=== PATIENT | female | born 1985 | race Caucasian/White ===

== ENCOUNTER → 2019-10-30 10:01 | Outpatient (BNVA) | payer SELFPAY | PROVIDERS: Visit Provider Emergency Medicine | DX: N39.0 Urinary tract infection, site not specified (principal); R10.30 Lower abdominal pain, unspecified | CPT/HCPCS: 81000 ==

== ENCOUNTER 2019-12-05 10:53 | Emergency (ER) | payer MEDICAID, SELFPAY ==
[2019-12-05] MEDS: sodium chloride 0.9% 1,000 ML 999 ML IV (11:20)
[2019-12-05 11:29] VITALS: BP 121/82; PULSE 79; RESP 17; TEMP 37.1; O2SAT 98; BMI 26.1
[2019-12-05 12:31] LABS: Basophils # 0.1 10^3/uL (0.0-0.1); Basophils % 0.8 %; Eosinophils % 0.1 %; Hematocrit 43.4 % (37.0-47.0); Hemoglobin 14.1 g/dL (11.5-15.3); Lymphocytes # 2.1 10^3/uL (0.8-4.8); Lymphocytes % 20.1 %; Mean Corpuscular HGB Conc 32.5 g/dL (30.0-36.0); Mean Corpuscular Hemoglobin 29.6 pg (28.0-34.0); Mean Platelet Volume 9.5 fL (7.4-10.4); Monocytes # 0.7 10^3/uL (0.2-0.9); Monocytes % 7.1 %; Neutrophils # 7.43 10^3/uL (1.8-7.7); Neutrophils % 71.7 %; Nucleated Red Blood Cells % 0 %; Platelet Count 291 10^3/cmm (130-400); Red Blood Count 4.77 10^6/uL (4.1-5.3); Red Cell Distribution Width 11.9 % (12.1-15.1); White Blood Count 10.4 10^3/uL (4.0-10.0)
[2019-12-05 12:47] LABS: Alanine Aminotransferase 10 U/L (0-33); Albumin Level 4.7 g/dL (3.5-5.2); Alkaline Phosphatase 57 IU/L (35-105); Aspartate Amino Transferase 11 U/L (0-32); Blood Urea Nitrogen 12 mg/dL (6-20); Calcium 9.4 mg/dL (8.5-10.5); Carbon Dioxide 26 mmol/L (22-29); Chloride 99 mmol/L (98-107); Globulin 3.6 g/dL (1.3-4.6); Glomerular Filtration Rate 70.8 mL/min (90-130); Glucose 102 mg/dL (65-115); Lipase 59 U/L (13-60); Osmolality Calculated 272 mOsm/kg (285-295); Sodium 133 mmol/L (136-145); Total Bilirubin 0.8 mg/dL (0.15-1.2); Total Protein 8.3 g/dL (6.6-8.7)
--- NOTE | 2019-12-05 13:08 | CTR_ITS ---
PROCEDURE INFORMATION: Exam: CT Abdomen And Pelvis With Contrast Exam date and time: 12/05/2019 1:08 PM Age: 34 years old Clinical indication: Abdominal pain; Additional info: Abdominal pain, fever TECHNIQUE: Imaging protocol: Computed tomography of the abdomen and pelvis with intravenous contrast. Axial, coronal and sagittal reformatted images were created and reviewed. Radiation optimization: All CT scans at this facility use at least one of these dose optimization techniques: automated exposure control; mA and/or kV adjustment per patient size (includes targeted exams where dose is matched to clinical indication); or iterative reconstruction. Contrast material: OMNI 300; Contrast volume: 95 ml; Contrast route: INTRAVENOUS (IV); COMPARISON: No relevant prior studies available. RADIATION DOSE METRICS: Total DLP (mGy-cm): 374.02 FINDINGS: Liver: Unremarkable. Gallbladder and bile ducts: No radiodense gallstones. No biliary ductal dilatation. Pancreas: Unremarkable. Spleen: Unremarkable. Adrenals: Unremarkable. Kidneys and ureters: 5.1 x 4.3 cm simple left renal cyst (no follow-up is indicated based on the imaging appearance). No radiodense calculi. No hydronephrosis. Stomach and bowel: No bowel wall thickening. No obstruction. No pneumatosis. Appendix: Status post appendectomy. Intraperitoneal space: No free fluid. No organized fluid collection. No free air. Vasculature: Unremarkable. No aneurysm. Lymph nodes: No pathologically enlarged lymph nodes. Bladder: Mild circumferential urinary bladder wall thickening, likely secondary to underdistention. Reproductive: Probable involuting right ovarian corpus luteal cyst versus dominant follicle. Bones/joints: No acute osseous abnormality. Soft tissues: Small, fat containing umbilical hernia. CT/CT abdomen pelvis w con* [id number]: 1. No CT evidence of acute intra-abdominal or pelvic pathology. 2. Additional findings, as above. COMMENTS: Consistent with the [employer]'s Incidental Findings Committee white paper (J Am Emilie Radiol 2018): Any incidental renal lesion less than 1.0 cm or classified as too small to characterize, or any incidental cystic renal lesion characterized as simple-appearing, is likely benign. No follow-up imaging is recommended for these lesions per consensus recommendations based on imaging criteria. Radiation Dose CTDIVOL = (mGy): DLP = 374.02 (mGy-cm)
[2019-12-05] MEDS: iohexol 300 mg/mL 100 mL Btl IV (15:22)
[2019-12-05 16:15] VITALS: BP 128/75; PULSE 78; RESP 16; O2SAT 97
--- NOTE | 2019-12-05 18:35 | W.ED.NAVMDI ---
HPI - Nausea/Vomiting/Diarrhea General: Chief complaint: Nausea/Vomiting/Diarrhea Stated complaint: n/v x 5 weeks,weight loss Time Seen by Provider: 12/05/19 12:22 History of Present Illness: HPI Narrative: This patient is a 34-year-old female who presents today with nausea and vomiting for 5 weeks. She has had about a 10 pound weight loss over the past 5 weeks. She said typically she wakes up in the morning and is too nauseous to eat. She often throws up before she tries to eat anything. She has been seen multiple times at urgent care, primary care, ED and has been diagnosed with various complaints from urinary tract infection to ear infection. She has been on antibiotics including amoxicillin, Cipro, Macrobid, Keflex. The only when she took a full course of was the Keflex. She said that did improve her urinary symptoms. She continues to have vomiting and is concerned about that. She also takes Ativan for anxiety and said that helps with the nausea but nothing else does. She has been taking Pepcid and Prilosec as well as Tums. She was also given Zofran. MD elicited complaint: nausea, vomiting and abdominal pain (Burning epigastric) Onset (ago): week(s) (5) Description of vomiting: watery Associated nausea: Yes Location of pain: Epigastric Associated symtoms: Reports nausea; Denies change in vision, chest pain, fatigue or headache(s) Review of Systems General: Reports: 10 or more systems reviewed and unremarkable except in HPI and below Const: Reports: change in weight; Denies: fever(s), chills or fatigue Eyes: Denies: change in vision ENMT: Denies: odynophagia Card: Denies: chest pain or swelling of feet/ankles Resp: Denies: dyspnea, productive cough or non-productive cough GI: Reports: nausea : Denies: flank pain or difficulty voiding Musc: Denies: neck pain or back pain Skin/Breast: Denies: rash Neuro: Denies: headache(s), numbness in extremities or weakness in extremities Donald/Lymph: Denies: easy bruising or easy bleeding PFSH ED PFSH: Social History Smoking and tobacco status: never smoked Alcohol intake: never History of recent travel: No Current gender identity: Female Physical Exam Const: COMMON NORMALS: no acute distress, patient oriented x3, no limitations and alert GENERAL APPEARANCE: cooperative and comfortable HENMT: HEAD & SCALP: normal to inspection FACE & SINUS: normal facial exam Eye: GENERAL EYE: appearance normal, both eyes and all related structures Neck/C-Spine: COMMON NORMALS: supple, no meningeal signs and no JVD Chest: COMMONS NORMALS: normal inspection of the chest Resp: COMMON NORMALS: normal respiratory effort, No use of accessory muscles and clear to auscultation bilaterally AUSCULTATION: clear to auscultation bilaterally Cardio: COMMON NORMALS: no JVD, regular rate, regular rhythm and No murmurs present (Cardio) RATE: regular rate RHYTHM: regular rhythm GI: COMMON NORMALS: Normal to inspection, nondistended, normoactive bowel sounds present, Soft to palpation and non-tender INSPECTION: Yes normal to inspection AUSCULTATION: Yes normoactive bowel sounds PALPATION: Yes Soft to palpation Back/Pelvis: COMMON NORMALS: thoracic and lumbar spine normal to inspection Extremity: COMMON NORMALS: normal to inspection Neuro: COMMON NORMALS: patient oriented x3, moves all extremities, no focal motor deficits and no sensory deficits noted SENSORIUM/ORIENTATION: Yes alert MENINGEAL SIGNS: Yes no meningeal signs Psych: COMMON NORMALS: mental status grossly normal, cooperative and normal affect Skin: COMMON NORMALS: no rashes or lesions noted and turgor normal GENERAL SKIN EXAM: no rashes or lesions noted and turgor normal Course ED course: Work-up unremarkable including urine. CT was done due to her persistent symptoms and weight loss. This was also unremarkable. We discussed that she probably needs further testing. This might include endoscopy or evaluation of her gallbladder with ultrasound or HIDA scan. I gave her referral to Dr. Goetz and she tells me she also has a referral to Dr. Bailey in [place]. I changed her medications and have her only on Pepcid rather than both that and omeprazole. I added Carafate and took her off the Tums. I added Reglan. Vital Signs: Vital signs: Vital Signs Temperature 98.7 F 12/05/19 11:29 Pulse Rate 78 12/05/19 16:15 Respiratory Rate 16 12/05/19 16:15 Blood Pressure 128/75 08/23/20 16:15 Pulse Oximetry 97 12/05/19 16:15 MDM - Nausea/Vomiting/Diarrhea MDM Narrative: Medical decision making narrative: Biliary colic, GERD, ulcers, anxiety, hiatal hernia, renal stone, pyelo-nephritis Lab Data: Labs: Lab Results 12/05/19 12/05/19 Range/Units 12:22 12:22 WBC 10.4 H (4.0-10.0) 10^3/ uL RBC 4.77 (4.1-5.3) 10^6/u L Hgb 14.1 (11.5-15.3) g/dL Hct 43.4 (37.0-47.0) % MCV 91.0 (81-99) fL MCH 29.6 (28.0-34.0) pg MCHC 32.5 (30.0-36.0) g/dL RDW 11.9 L (12.1-15.1) % Plt Count 291 (130-400) 10^3/c mm MPV 9.5 (7.4-10.4) fL Neut % (Auto) 71.7 % Lymph % (Auto) 20.1 % [place] % (Auto) 7.1 % Eos % (Auto) 0.1 % Baso % (Auto) 0.8 % Neut # (Auto) 7.43 (1.8-7.7) 10^3/u L Lymph # (Auto) 2.1 (0.8-4.8) 10^3/u L [place] # (Auto) 0.7 (0.2-0.9) 10^3/u L Eos # (Auto) 0.0 (0.0-0.8) 10^3/u L Baso # (Auto) 0.1 (0.0-0.1) 10^3/u L Nucleated RBC % (a uto) 0 % Nucleated RBCs # 0.0 /100WBC Sodium 133 L (136-145) mmol/L Potassium 4.0 (3.5-5.1) mmol/L Chloride 99 (98-107) mmol/L Carbon Dioxide 26 (22-29) mmol/L Anion Gap 12.0 (5-19) BUN 12 (6-20) mg/dL Creatinine 0.9 (0.5-0.9) mg/dL GFR Calculation 70.8 L (90-130) mL/min Glucose 102 (65-115) mg/dL Calculated Osmolal ity 272 L (285-295) mOsm/k g Calcium 9.4 (8.5-10.5) mg/dL Total Bilirubin 0.8 (0.15-1.2) mg/dL AST 11 (0-32) U/L ALT 10 (0-33) U/L Alkaline Phosphata se 57 (35-105) IU/L Total Protein 8.3 (6.6-8.7) g/dL Albumin 4.7 (3.5-5.2) g/dL Globulin 3.6 (1.3-4.6) g/dL Lipase 59 (13-60) U/L Discharge Plan Discharge Patient Disposition: Home Clinical Impression: Vomiting Qualifiers: Vomiting type: unspecified Vomiting Intractability: unspecified Nausea presence: unspecified Qualified Code(s): R11.10 - Vomiting, unspecified Condition: Stable Prescriptions: New Reglan 10 mg tablet 10 mg PO BID PRN (Reason: nausea and vomiting) 7 Days Qty: 14 RF: 0 Carafate 1 gram tablet 1 gm PO TID 28 Days Qty: 84 RF: 0 Discontinued calcium carbonate [Tums] 300 mg (750 mg) Tablet,Chewable 300 mg PO QID RF: 0 omeprazole 20 mg Tablet,Delayed Release (Dr/Ec) 20 mg PO DAILY RF: 0 ibuprofen 200 mg Tablet 200 - 400 mg PO Q4H PRN (Reason: Pain) RF: 0 No Action ondansetron HCl 4 mg tablet 4 mg PO Q4H PRN (Reason: Pain) RF: 0 Pepcid 20 mg Tablet 20 mg PO DAILY RF: 0 lorazepam 0.5 mg tablet 0.5 mg PO BID RF: 0 escitalopram oxalate 10 mg tablet 10 mg PO DAILY RF: 0 Discharge Orders: Discharge Order (Routine); Ordered 12/05/19 Ordered By: Rosamaria Spangler Referrals: Jaleel Goetz MD [Physician] - 7-10 days (GI evaluation) Discharge Diet: Low Fat Discharge Activity: Resume usual activity Patient Instructions: Gastroesophageal Reflux Disease (ED) Activity Restrictions/Additional Instructions: Return to the emergency department if new or worse symptoms including fever. Follow-up with Dr. Goetz for an evaluation of your GI symptoms. Stop the Prilosec, continue the Pepcid. Stop the Tums and start Carafate. You may use the Zofran and the Reglan together if needed for nausea. Try taking the Reglan first thing in the morning before you eat. Discharge Date/Time: 12/05/19 16:16 Coding Level of Care Code ED Health Care Marketing Manager for Julio C Brannon
== END 2019-12-05 16:16 | disposition home or self-care (01) ==
PROVIDERS: Emergency Medicine; Emergency Provider Emergency Medicine
DX: R11.10 Vomiting, unspecified (principal)
CPT/HCPCS: 12345; 74177; 80053; 83690; 85025; 96360; 99283; J7030; Q9967

== ENCOUNTER 2019-12-10 09:04 | Day surgery (SDC) | payer MEDICAID, SELFPAY ==
[2019-12-08 15:28] VITALS: BMI 42.9
[2019-12-10 09:51] VITALS: BP 137/80; PULSE 74; RESP 18; TEMP 36.5; O2SAT 98
[2019-12-10] MEDS: sodium chloride 0.9% 1,000 ML 30 ML IV (09:59)
--- NOTE | 2019-12-10 10:22 | ANES.PREANE2 ---
Pre-Anesthetic Assessment Pre-Anesthetic Assessment: Height/Weight: Height 1.63 m Weight 68.039 kg Temp Pulse Resp BP Pulse Ox 97.7 F 74 18 137/80 98 12/10/19 09:51 12/10/19 09:51 12/10/19 09:51 12/10/19 09:51 12/10/19 09:51 Preop Diagnosis: egd Proposed Procedure: Operation Date: 12/10/19 10:45 Proposed Procedures p EGD 43143 R11.2(Not Applicable) - Jaleel Goetz MD Was Beta Kermit taken within 24 hours: N/A Last intake: Intake Last Liquid Date 12/09/19 Last Liquid Time 23:50 Last Solid Date 12/09/19 Last Solid Time 20:30 Social: Social History: No alcohol and No tobacco Exam: Pre-Anes Outpt Exam: alert, oriented x 3, clear to auscultation bilaterally and regular rate & rhythm Airway: Submandibular: WNL Cervical ROM: WNL MP: 1 History/ROS: No significant history except as noted Pulmonary: Pulmonary: None reported CV/HEM: CV/HEM: None reported : : None reported GI: GI: GERD Metabolic: Metabolic: None reported Musc/skel: Musc/skel: None reported Neuropsych: Neuropsych: None reported Anesthetic Plan: ASA status: 2 Meds/Allergies Current Medications: Current Medications Generic Name Dose Route Start Last Admin Trade Name Freq PRN Reason Stop Dose Admin Sodium Chloride 1,000 mls @ 30 ml s/hr 12/10/19 09:45 12/10/19 09:59 Sodium Chloride 0.9% IV 30 mls/hr .Q24H MARGARITO Administration PFSH Anesthesia PFSH: Family History Father Diabetes Grandmother Stroke Social History Smoking and tobacco status: never smoked Alcohol intake: never History of recent travel: No Current gender identity: Female Data Anesthesia Cardiac Studies: No Data to Display
--- NOTE | 2019-12-10 11:42 | W.PM.OPSUD ---
Surgery/Procedure H&P Update DATE OF PROCEDURE: December 10, 2019 DATE H&P PERFORMED: 12/07/19 PREOP DIAGNOSIS: egd PLANNED PROCEDURE: Operation Date: 12/10/19 10:45 Proposed Procedures p EGD 26986 R11.2(Not Applicable) - Jaleel Goetz MD
[2019-12-10 12:11] VITALS: BP 121/59; PULSE 64; RESP 16; TEMP 36.7; O2SAT 100
[2019-12-10 12:29] VITALS: BP 126/74; PULSE 60; RESP 16; O2SAT 100
== END 2019-12-10 12:38 | disposition home or self-care (01) ==
PROVIDERS: PCP Nurse Practitioner Family; Visit Provider Internal Medicine
PROC: 0DJ08ZZ Inspection of Upper Intestinal Tract, Via Natural or Artificial Opening Endoscopic (ICD-10-PCS; CPT 43235; principal; 2019-12-10 10:45)
DX: R11.2 Nausea with vomiting, unspecified (principal); K21.9 Gastro-esophageal reflux disease without esophagitis
CPT/HCPCS: 12345; 43235; J2704; J7030

== ENCOUNTER → 2021-08-15 09:57 | Outpatient (BNVA) | payer BC, MEDICAID, SELFPAY | PROVIDERS: PCP Nurse Practitioner Family; Visit Provider Nurse Practitioner Family | DX: J02.9 Acute pharyngitis, unspecified (principal); J30.9 Allergic rhinitis, unspecified | CPT/HCPCS: 87081; 87880 ==